=== PATIENT | female | born 1970 | race Caucasian/White ===

== ENCOUNTER 2018-09-08 12:56 | Emergency (ER) | payer OTHER ==
[~2018-09-08] VITALS: Ht 165.1 cm; Wt 117.9 kg
[2018-09-08] MEDS ORDERED: METFORMIN HCL500 MG PO (13:14)
[2018-09-08] MEDS ORDERED: AMARYL4 MG PO (13:14)
[2018-09-08] MEDS ORDERED: FORXIGA (13:15)
[2018-09-08] MEDS ORDERED: LIPITOR80 MG PO (13:15)
[2018-09-08] MEDS ORDERED: TRAMADOL 50 MG50 MG PO (13:30)
[2018-09-08] MEDS ORDERED: MEDROL DOSPAK21 TA1 PO (13:30)
[2018-09-08 13:40] VITALS: BP 143/77
== END 2018-09-08 13:41 | disposition home or self-care (01) ==
LOC: M.ERS 12:56
DX: M25.512 Pain in left shoulder (principal); M79.622 Pain in left upper arm; F17.200 Nicotine dependence, unspecified, uncomplicated; E11.9 Type 2 diabetes mellitus without complications; E78.5 Hyperlipidemia, unspecified; Z90.49 Acquired absence of other specified parts of digestive tract; Z90.710 Acquired absence of both cervix and uterus